=== PATIENT | male | born 1940 | race Caucasian/White ===

== ENCOUNTER 2016-11-20 06:10 | Inpatient (IN) | payer MEDICARE, BC ==
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
[~2016-11-20 06:10] MED LIST: Buffered Lidocaine 0.9% SYRIN* 5 ML/SYR SYRINGE INTRADERM ONE; Buffered Lidocaine 0.9% SYRIN* 5 ML/SYR SYRINGE ONE; Famotidine IV* 10 MG/ML 2 ML (20 mg) IV ONE; Famotidine IV* 10 MG/ML 2 ML (20 mg) ONE; Metoclopramide TAB* 10 MG ONE; Metoclopramide TAB* 10 MG PO ONE; ceFAZolin 2 GM PREMIX(*) 2 GM/50 ML BAG IVPB ONE
[2016-11-20] MEDS ORDERED: KETAMINE HCL* 50 MG/ML 10 ML VIAL ONE (07:03)
[2016-11-20] MEDS ORDERED: Dexamethasone IV* 4 MG/ML 1 ML (4 MG) ONE (07:03)
[2016-11-20] MEDS ORDERED: Ondansetron INJ* 2 MG/ML VIAL ONE ×2 (07:03→11:17)
[2016-11-20] MEDS ORDERED: Ketorolac INJ* 30 MG/ML 1 ML VIAL ONE (07:03)
[2016-11-20] MEDS ORDERED: Propofol* 10 MG/ML 20 ML BTL IV PUSH ONE (07:03)
[2016-11-20] MEDS ORDERED: fentaNYL* 50 MCG/ML 2 ML VIAL (100 MCG VIAL) ONE (07:03)
[2016-11-20] MEDS ORDERED: Lidocaine 2% PF * 5 ML VIAL ONE (07:03)
[2016-11-20] MEDS ORDERED: Midazolam* 1 MG/ML 5 ML VIAL (5 MG) ONE (07:03)
[2016-11-20] MEDS ORDERED: Propofol* 500 MG/50 ML BTL ONE (07:28)
[2016-11-20] MEDS ORDERED: Bupivacaine 0.5% SDV PF* 30 ML VIAL ONE (07:28)
[2016-11-20] MEDS ORDERED: Morphine PF AMP (0.5MG/ML)* 5 MG/10 ML AMP ONE (07:28)
[2016-11-20] MEDS ORDERED: Phenylephrine INJ* 10 MG/ML 1 ML VIAL (10 MG) ONE (08:57)
[2016-11-20] MEDS ORDERED: diPHENhydraMINE IV* 50 MG/ML 1 ml VIAL (BENADRYL) IV PRN ×2 (09:21→09:25)
[2016-11-20] MEDS ORDERED: fentaNYL* 50 MCG/ML 2 ML VIAL (100 MCG VIAL) IV PRN (09:21)
[2016-11-20] MEDS ORDERED: Phenylephrine INJ* 50 MG in NS 0.9% 250 ML* 245 ML IV PRN (09:21)
[2016-11-20] MEDS ORDERED: Ondansetron INJ* 2 MG/ML VIAL IV PRN ×2 (09:21→09:25)
[2016-11-20] MEDS ORDERED: oxyCODONE/Acetamin 5/325 MG* TAB PO PRN ×2 (09:25)
[2016-11-20] MEDS ORDERED: EPHEDrine (Pressors)* 50 MG/ML VIAL IV PUSH PRN (09:25)
[2016-11-20] MEDS ORDERED: Lactated Ringers 500 ml BAG* 500 ML IV PRN (09:25)
[2016-11-20] MEDS ORDERED: Naloxone* 0.4 MG/ML 1 ML VIAL IV PRN (09:31)
[2016-11-20] MEDS ORDERED: Ropivacaine* 300 MG in NS 0.9% 250 ML* 240 ML EPIDURAL SCH (10:00)
[2016-11-20] MEDS ORDERED: Polyethylene Glycol 3350* 17 GM PACKET PO PRN (10:40)
[2016-11-20] MEDS ORDERED: Magnesium Hydroxide LIQ* 30 ML UDC PO PRN (10:40)
[2016-11-20] MEDS ORDERED: Bisacodyl SUPP* 10 MG SUPP PR PRN (10:40)
[2016-11-20] MEDS ORDERED: Acetaminophen TAB* 325 MG PO PRN (10:40)
[2016-11-20] MEDS ORDERED: Benzonatate CAP* 100 MG PO PRN (10:43)
--- NOTE | 2016-11-20 11:44 | RAD ---
INDICATION: Status post total right knee replacement surgery. COMPARISON: Comparison is made with a prior x-ray study of the right knee from October 12, 2016. TECHNIQUE: 2 views of the right knee were obtained. FINDINGS: The patient is status post total right knee replacement surgery. The bones and prostheses are in normal alignment. There is a surgical drain present anterior to the distal femur. IMPRESSION: STATUS POST TOTAL RIGHT KNEE REPLACEMENT SURGERY.
[2016-11-20] MEDS ORDERED: DiMENhydriNATE IV* 50 MG/ML VIAL ONE (14:09)
[2016-11-20] MEDS ORDERED: Scopolamine 1.5 mg* PATCH TRANSDERM ONE (15:00)
[2016-11-20] MEDS ORDERED: Dextrose 50% Syringe 50 ML* 25 GM/50 ML SYRINGE IV PUSH PRN (16:11)
[2016-11-20] MEDS ORDERED: Warfarin TAB(*) 6 MG PO ONE (17:00)
[2016-11-20] MEDS: ceFAZolin VIAL(*) 1 GM in NS 0.9% 50 ML* 50 ML IVPB SCH (17:15)
[2016-11-20] MEDS: Insulin LISPRO* 1 UNITS UNIT SUBCUT SCH ×2 (18:10→21:00)
[2016-11-20] MEDS: Docusate CAP* 100 MG PO SCH (20:58)
[2016-11-20] MEDS: Metoprolol Succinate XL TAB* 50 MG PO SCH (20:58)
--- NOTE | 2016-11-20 22:53 | CONS ---
CC: Dr. Jeana Zacarias ([facility]), in [place], [place] * MEDICAL CONSULTATION REPORT: DATE OF CONSULT/DICTATION: 11/20/16 PRIMARY CARE PROVIDER: Dr. Tucker in [place]. REQUESTING PROVIDER AND SURGEON: Dr. Greene. CONSULTING PROVIDER: JUVENTINO Jeffery SUPERVISING PHYSICIAN: Dr. Beth Rodriguez. REASON FOR CONSULT: Status post right total knee replacement and request for medical co-management. HISTORY OF PRESENT ILLNESS: This is a 75-year-old gentleman with non-insulin dependent diabetes, hypertension, hyperlipidemia, obstructive sleep apnea, spinal stenosis, BPH, and GERD, who presented for an elective right total knee replacement with Dr. Greene, which took place earlier today. Review of his medical chart reveals that the patient was evaluated by his primary care provider and store hand preoperatively. The patient had a nuclear stress test in June 2016 after an episode of chest pain which was read as a low risk study without evidence for ischemia or old infarct. At the time of recent evaluation, he had an echocardiogram performed which shows a normal left ventricular ejection fraction, mild valvular insufficiency, but no other concerning abnormalities. The patient has no known history of coronary artery disease. Primary care provider states that his chronic medical conditions are appropriately controlled preoperatively. The patient denies any recent illness. No periods of chest pain, shortness of breath, palpitations, abdominal pain, nausea, or vomiting. The patient was evaluated postoperatively and he is fatigued. He had some mild nausea earlier, but states that this is resolved and he does not have any pain in his surgical site and he still has limited feeling after spinal anesthesia. He denies chest pain or shortness of breath at this time. PAST MEDICAL HISTORY: 1. Hypertension. 2. Hyperlipidemia. 3. Obstructive sleep apnea. 4. Non-insulin dependent diabetes/the patient is treated only with Onglyza. 5. Spinal stenosis. 6. BPH. 7. GERD. PAST SURGICAL HISTORY: 1. Hernia repair. 2. Cataract extraction. HOME MEDICATIONS: 1. Aspirin 81 mg p.o. daily. 2. Benzonatate 200 mg p.o. q.i.d. as needed for cough. 3. Fioricet 1 capsule p.o. daily as needed for headache. 4. Trilipix 135 mg p.o. daily. 5. Voltaren gel 1% gel apply topically as needed. 6. Nexium 40 mg p.o. daily. 7. Mobic 15 mg p.o. daily. 8. Metoprolol succinate 50 mg p.o. twice daily. 9. Multivitamin 1 tablet p.o. daily. 10. Pataday eye drops 0.2% solution in both eyes daily. 11. Aurora-3 fatty acids 2 capsules p.o. twice daily. 12. Crestor 20 mg p.o. daily. 13. Onglyza 5 mg p.o. daily. 14. Valsartan/hydrochlorothiazide 160/12.5 take 1 tablet p.o. daily. 15. Vitamin D 50,000 units p.o. daily. SOCIAL HISTORY: The patient lives at home with his . Rare alcohol consumption. He has a 6-pack year smoking history and quit nearly 40 years ago. REVIEW OF SYSTEMS: As noted above in the HPI and otherwise reported negative. PHYSICAL EXAM: Most recent vitals: Temperature 97.1 degrees Fahrenheit, pulse 91 beats per minute, respiratory rate 14 per minute, oxygen saturation 96% on 4 L, and blood pressure 134/64 mmHg. General: This is a very pleasant elderly gentleman who is lying comfortably in the hospital bed. He was asleep upon entering the room, but easily awakens. HEENT: Head is normocephalic, atraumatic. Mucous membranes are pink and moist. Cardiovascular: Heart has a regular rate and rhythm without murmurs, rubs, or gallops. Respiratory: Lungs are clear to auscultation without wheezes, crackles, or rhonchi. Abdomen: Soft and nontender to palpation. Extremities: Surgical dressing is in place with Cryo/cuff over right knee. No significant lower extremity edema noted. Skin: Limited exam shows no concerning rashes or lesions. Psych: The patient is alert and appropriately oriented. DIAGNOSTIC STUDIES/LAB DATA: Reviewed preoperative labs from 10/24/16 which included a CBC which was within normal limits. His preop hemoglobin was specifically 13.9. Comprehensive metabolic panel was also within normal limits with a preop creatinine of 0.9 with an estimated GFR of greater than 60. IMAGIN. Preop EKG shows a sinus rhythm without ischemic changes. 2. Preop chest x-ray from 11/14/16 shows no acute process. ASSESSMENT AND PLAN: This is a 75-year-old gentleman with hypertension, hyperlipidemia, obstructive sleep apnea, spinal stenosis, diabetes, benign prostatic hyperplasia, and gastroesophageal reflux disease, who presented for elective right total knee replacement with Dr. Greene earlier today. Medical co - management has been requested from hospitalist group. 1. Status post right total knee replacement - postoperative management per orthopedic surgery team including DVT prophylaxis, pain management, and discharge planning. 2. Hypertension - the patient is normotensive postoperatively. We plan to hold his OSWALDO inhibitor and hydrochlorothiazide postoperatively and likely resume tomorrow or the following day. 3. Hyperlipidemia - continue statin. 4. Obstructive sleep apnea - the patient brought his own CPAP machine which will be ordered for use during his hospital stay. 5. Non-insulin dependent diabetes - we will hold his oral hypoglycemic agents at this time and cover with sliding scale Humalog as needed. 6. Benign prostatic hyperplasia. 7. Gastroesophageal reflux disease. 8. Spinal stenosis with chronic back pain. 9. Code status - the patient is full code. 10. DVT prophylaxis per Orthopedic Surgery. The patient has been ordered Coumadin to start today, which will be bridged with Lovenox. 11. Healthcare proxy is patient's . DISPOSITION: Hospitalist group will continue to follow along postoperatively. JUVENTINO JEFFERY [id number]/[facility] #: [id number] SILVER
[2016-11-21] MEDS: oxyCODONE TAB* 5 MG TAB PO PRN ×5 (05:38→22:47)
[2016-11-21] MEDS ORDERED: Ondansetron INJ* 2 MG/ML VIAL IV PRN (06:00)
[2016-11-21] MEDS ORDERED: HYDROmorphone* 1 MG/ML 1 ML SYR IV SLOW PU PRN (06:00)
[2016-11-21] MEDS ORDERED: diPHENhydraMINE IV* 50 MG/ML 1 ml VIAL (BENADRYL) IV PRN (06:00)
[2016-11-21] MEDS ORDERED: oxyCODONE/Acetamin 5/325 MG* TAB PO PRN (06:00)
[2016-11-21 06:03] LABS: Hematocrit 31 % (42-52); Hemoglobin 10.4 g/dl (14.0-18.0)
[2016-11-21 06:30] LABS: BUN/Creatinine Ratio 31.3 (8-20); Calcium 8.8 mg/dL (8.6-10.3); EGFR African American 116.8 (>60); EGFR Non-African American 90.8 (>60); Potassium 4.1 mmol/L (3.5-5.0)
[2016-11-21] MEDS: CHOLINE FENOFIBRATE PO SCH (07:52)
[2016-11-21] MEDS: ceFAZolin VIAL(*) 1 GM in NS 0.9% 50 ML* 50 ML IVPB SCH ×3 (07:54)
[2016-11-21] MEDS ORDERED: SAXAGLIPTIN HCL 5 MG PO SCH (09:00)
[2016-11-21] MEDS ORDERED: Valsartan/HCTZ 160/12.5(NF) TAB PO SCH (09:00)
[2016-11-21] MEDS ORDERED: Valsartan TAB* 160 MG PO SCH (09:00)
[2016-11-21] MEDS ORDERED: Hydrochlorothiazide TAB* 25 MG PO SCH (09:00)
[2016-11-21] MEDS: Insulin LISPRO* 1 UNITS UNIT SUBCUT SCH ×4 (09:33→22:02)
[2016-11-21] MEDS: Metoprolol Succinate XL TAB* 50 MG PO SCH ×2 (09:34→22:02)
[2016-11-21] MEDS: Enoxaparin(*) 40 MG/0.4 ML SYR SUBCUT SCH (09:34)
[2016-11-21] MEDS: Atorvastatin* 40 MG TAB PO SCH (09:34)
[2016-11-21] MEDS: Docusate CAP* 100 MG PO SCH ×2 (09:34→22:01)
--- NOTE | 2016-11-21 09:45 | OP ---
DATE OF OPERATION: 11/20/16 - ROOM #346 DATE OF : 44 SURGEON: Mai Greene MD CRUST SORTER: JUVENTINO Marlow. Ms. Wong did help throughout the procedure with preparation of the leg, wound retraction, manipulation of the knee, and wound closure. ANESTHESIOLOGIST: Dr. Chris. ANESTHESIA: Spinal. PRE-OP DIAGNOSIS: Severe end-stage osteoarthritis of the right knee joint. POST-OP DIAGNOSIS: Severe end-stage osteoarthritis of the right knee joint. OPERATIVE PROCEDURE: Right total knee arthroplasty. TOURNIQUET TIME: 49 minutes. COMPLICATIONS: None. ESTIMATED BLOOD LOSS: 200 cc. SPECIMENS: Bone and cartilage from the right knee joint, sent to pathology. HARDWARE USED: This is a [employer] cemented total knee arthroplasty hardware. For the femur, a size 6 right posterior stabilized femoral component. For the tibia, a size 6 right tibial baseplate. For the insert, a size 5/6, 9-mm posterior stabilized articular insert. For the patella, a 35-mm , 3-peg all poly patella. Two packages of bone cement were used. BRIEF HISTORY/INDICATIONS: Mr. Olivares is a 75-year-old gentleman with years of increasingly severe right knee pain. He failed conservative treatment with antiinflammatories, pain medication, intraarticular injections, and physical therapy. Radiographs confirmed [id number] end-stage arthritis of the right knee joint. Due to pain and decreased quality of life, the patient elected to have right total knee arthroplasty. Informed consent was obtained from the patient. He understood the risk of surgery included but was not limited to bleeding, infection, damage to nearby structures, intra-op fracture, nerve palsy , hardware failure or loosening, knee stiffness, loss of motion, stroke, heart attack, blood clot, and . The patient elected to proceed. INTRAOPERATIVE FINDINGS: Intraoperatively, the patient was found to have 10- degree flexion contracture with 120 degrees of flexion. Postop range of motion was achieved with full extension to 130 degrees of flexion. The patient had severe end- stage arthritis with significant cartilage loss in all 3 compartments. DESCRIPTION OF PROCEDURE: Mr. Olivares was identified in the preanesthesia unit. His right lower extremity was marked as the correct operative side. Informed consent was signed and placed in the chart. The patient was taken to the operating room and placed under spinal anesthesia. Warren catheter was placed. Thigh-high tourniquet was placed on the right thigh. The right lower extremity was prepped and draped in the usual sterile fashion. Preop time-out was made to correctly identify the patient's side and site. Appropriate perioperative antibiotics were given within 1 hour of incision. Tourniquet was inflated and total tourniquet time for this procedure was 49 minutes. Incision was made in the midline, which was 14 cm in length. This was carried down to the extensor mechanism. A new 10 blade was used to make a standard medial parapatellar arthrotomy and the patella was subluxed laterally. Electrocautery was used to subperiosteally elevate soft tissue off the superomedial tibia to the midsagittal plane. Osteophytes were carefully removed from around the proximal tibia. The knee was carefully flexed up. The anterior horn of the lateral meniscus was sharply removed. ACL was not present. A drill was used to enter the distal femur. Intramedullary distal femoral cutting guide was then pinned on the distal femur. Oscillating saw was used to make the distal femoral cut. External rotation guide was pinned on the distal femur. Distal femur was sized to a size 6. Size 6 multi- cutting jig was pinned on the distal femur. Oscillating saw was used to make the appropriate 4 chamfer cuts. Any bony fragments were carefully removed. The PCL was completely released. The tibia was subluxed anteriorly. Extramedullary tibial cutting guide was pinned on the proximal tibia. Oscillating saw was used to make the proximal tibial cut perpendicular to the mechanical axis of the tibia. The bone was carefully removed. The knee was brought out into full extension. There was good medial and lateral ligamentous balancing. There was good flexion and extension gap balancing. The knee was flexed up. Lamina director of surgery was placed both medially and laterally. Any remaining meniscus was carefully removed using electrocautery. Curved osteotome was used to remove any posterior osteophytes. A tibial tray and drop veronika were placed. Once again, satisfactory proximal tibial cut was noted. A size 6 femoral trial right side was chosen and impacted on to the distal femur. This had excellent fit. The box for the posterior stabilized implant was prepared using a reamer and box cut osteotome. Trial size 6 tibial tray and a 9 mm insert trial were placed. The knee was taken through a range of motion and had full extension to 130 degrees of flexion with good patellofemoral tracking. Patella was everted. A 9 mm of patellar bone and cartilage was carefully removed with an oscillating saw. Patella was sized to a size 35. Three peg holes were drilled through the size 35 guide. 35 patella trial was chosen and placed and the knee was taken through a range of motion and had good patellofemoral tracking. All trials were carefully removed. The tibia was subluxed anteriorly and sized to a size 6. Proximal tibia was prepared using a size 6 keel punch. All bony cut surfaces were copiously irrigated with sterile saline and dried. The final implants were cemented into place starting with the tibia, followed by the femur, and last the patella. A 9-mm insert trial was placed while the knee was brought out into full extension. Tourniquet was turned down at 49 minutes. The knee was copiously irrigated with sterile saline. Once the cement had fully cured, the insert trial was removed. Any excess cement was carefully removed. Electrocautery was used to obtain meticulous hemostasis. Final insert chosen was a 9-mm posterior stabilized articular insert size 5/6. This was locked into position on the tibial tray. Stability of the insert was checked and rechecked and noted to be stable. The knee was copiously irrigated with sterile saline. The extensor mechanism was reapproximated using interrupted #1 Vicryl over a medium Hemovac drain. The rest of the incision was closed in a layered fashion using 0 and 2-0 Vicryls. The skin was closed using running 3-0 nylon suture. The incision was covered with Xeroform, 4x4's, and Webril. Wilberto wrap and cold pack were placed over this. The patient's anesthesia was reversed without difficulty. The patient was taken to the PACU in stable condition. Intended weightbearing will be weightbearing as tolerated. Intended DVT prophylaxis will be Coumadin with a Lovenox bridge. [id number]/[facility] #: [id number] SILVER
--- NOTE | 2016-11-21 10:52 | PN ---
Progress Note - Progress Note SOAP: Subjective: []Patient seen OOB in chair with mild to moderate right knee pain. Denies SOB, CP or dizziness. Objective: [] Vital Signs Temp 97.5 F 11/21/16 07:36 Pulse 74 11/21/16 07:36 Resp 18 11/21/16 09:34 BP 132/70 11/21/16 07:36 Pulse Ox 100 11/21/16 08:00 Intake & Output 11/20/16 11/21/16 11/21/16 18:59 06:59 18:59 Intake Total 3260 2015 420 Output Total 400 700 600 Balance 2860 1315 -180 Intake: IV Fluids 2900 1035 ABX - CEFAZOLIN 55 D5W LR 980 LR 2900 Oral 360 980 420 Output: Warren 250 700 600 Straight Cath 150 Other: # Bowel Movements 0 Laboratory Results - last 24 hr 11/20/16 11/20/16 11/21/16 17:15 20:49 05:38 Hgb 10.4 L Hct 31 L INR (Anticoag Therapy) Sodium Potassium Chloride Carbon Dioxide Anion Gap BUN Creatinine Est GFR ( Amer) Est GFR (Non-Af Amer) BUN/Creatinine Ratio Glucose POC Glucose (mg/dL) 180 H 182 H Calcium 11/21/16 11/21/16 11/21/16 05:38 05:38 07:43 Hgb Hct INR (Anticoag Therapy) 1.02 Sodium 133 Potassium 4.1 Chloride 102 Carbon Dioxide 25 Anion Gap 6 BUN 26 H Creatinine 0.83 Est GFR ( Amer) 116.8 Est GFR (Non-Af Amer) 90.8 BUN/Creatinine Ratio 31.3 H Glucose 131 H POC Glucose (mg/dL) 150 H Calcium 8.8 Right knee hemovac was discontinued by Dr. Greene this am, no complications Dressing remains dry calf non tender +DF/PF right ankle sensation intact Assessment: []s/p Right total knee arthroplasty POD #1 Plan: []PT/OT WBAT RLE Coumadin with Lovenox bridge- 8 mg today Home with VNS Saturday
[2016-11-21] MEDS: Ketorolac INJ* 30 MG/ML 1 ML VIAL IV PUSH PRN (11:42)
--- NOTE | 2016-11-21 16:29 | PN ---
Subjective Date of Service: 11/21/16 Interval History: Patient reports moderate pain. No SOB or CP. No palpitations. No abd pain, n/ v. Appetite is good Objective Active Medications: Acetaminophen (Tylenol Tab*) 650 mg PO Q4H PRN PRN Reason: PAIN OR TEMPERATURE Atorvastatin Calcium (Lipitor*) 40 mg PO DAILY [facility] Last Admin: 11/21/16 09:34 Dose: 40 mg Benzonatate (Tessalon Cap*) 200 mg PO QID PRN PRN Reason: COUGH Bisacodyl (Dulcolax Supp*) 10 mg MI DAILY PRN PRN Reason: constipation Dextrose (D50w Syringe 50 Ml*) 12.5 gm IV PUSH .FOR FS < 60 - SS PRN PRN Reason: FS < 60 Diphenhydramine HCl (Benadryl Iv*) 12.5 mg IV Q6H PRN PRN Reason: PRURITIS Docusate Sodium (Colace Cap*) 100 mg PO BID [facility] Last Admin: 11/21/16 09:34 Dose: 100 mg Enoxaparin Sodium (Lovenox(*)) 40 mg SUBCUT Q24H [facility] Last Admin: 11/21/16 09:34 Dose: 40 mg Fenofibrate (Trilipix(Nf)) 135 mg PO DAILY [facility] Last Admin: 11/21/16 07:52 Dose: Not Given Hydromorphone HCl (Dilaudid Iv*) 1 mg IV SLOW PU Q4H PRN PRN Reason: PAIN Lactated Ringer's (Lactated Ringers 1000 Ml Bag*) 1,000 mls @ 100 mls/hr IV PER RATE [facility] Last Admin: 11/21/16 00:03 Dose: 100 mls/hr Insulin Human Lispro (Humalog*) 0 units SUBCUT ACHS [facility] PRN Reason: Protocol Last Admin: 11/21/16 13:20 Dose: 2 units Ketorolac Tromethamine (Toradol Inj*) 30 mg IV PUSH Q6H PRN PRN Reason: PAIN Last Admin: 11/21/16 11:42 Dose: 30 mg Lactulose (Lactulose*) 30 ml PO Q6H PRN PRN Reason: constipation Magnesium Hydroxide (Milk Of Magnesia Liq*) 30 ml PO Q6H PRN PRN Reason: constipation Metoprolol Succinate (Toprol Xl Tab*) 50 mg PO BID [facility] Last Admin: 11/21/16 09:34 Dose: 50 mg Ondansetron HCl (Zofran Inj*) 4 mg IV Q6H PRN PRN Reason: nausea Last Admin: 11/21/16 07:49 Dose: 4 mg Oxycodone HCl (Roxycodone Tab*) 10 mg PO Q4H PRN PRN Reason: SEVERE PAIN Last Admin: 11/21/16 12:32 Dose: 10 mg Oxycodone/Acetaminophen (Percocet 5/325 Tab*) 1 tab PO Q3H PRN PRN Reason: PAIN - MODERATE Oxycodone/Acetaminophen (Percocet 5/325 Tab*) 2 tab PO Q3H PRN PRN Reason: PAIN - MODERATE Pharmacy Profile Note (Coumadin Daily Reminder*) 0 note FOLLOW UP 1700 [facility] Last Admin: 11/20/16 15:03 Dose: 1 note Pharmacy Profile Note (Scopolomine Patch Remove*) 1 note PATCH OFF 1500 ONE Stop: 11/23/16 15:01 Polyethylene Glycol/Electrolytes (Miralax*) 17 gm PO DAILY PRN PRN Reason: Constipation Warfarin Sodium (Coumadin Tab(*)) 8 mg PO ONCE@1700 ONE PRN Reason: Protocol Stop: 11/21/16 17:01 Vital Signs: Temp Pulse Resp BP Pulse Ox 98.1 F 103 19 144/60 93 11/21/16 11:36 11/21/16 15:58 11/21/16 15:58 11/21/16 15:58 11/21/16 15:58 Oxygen Devices in Use Now: None Appearance: Well appearing elderly gentleman in NAD Respiratory: Symmetrical Chest Expansion and Respiratory Effort, Clear to Auscultation Cardiovascular: NL Sounds; No Murmurs; No JVD, RRR Abdominal: NL Sounds; No Tenderness; No Distention Extremities: No Edema Skin: No Rash or Ulcers Neurological: Alert and Oriented x 3 Result Diagrams: 11/21/16 05:38 11/21/16 05:38 Assess/Plan/Problems-Billing Assessment: This is a 75 yo gentleman with NIDDM, HTN, DALE, GERD, BPH, HLD and spinal stenosis who presented for elective R TKA with Dr Greene. Hospitalist group has been asked to co-manage. - Patient Problems (1) Status post total knee replacement Comment: POD #1 Management per surgery (2) Diabetes Comment: NIDDM Well controlled Cont SS Humalog (3) HTN (hypertension) Comment: Normotensive Restart Diovan tomorrow Cont metoprolol (4) HLD (hyperlipidemia) (5) DALE (obstructive sleep apnea) Comment: Compliant with CPAP (6) BPH (benign prostatic hyperplasia) (7) Spinal stenosis (8) Full code status (9) DVT prophylaxis Comment: per ortho Lovenox bridging to Coumadin Status and Disposition: Inpatient. Dispo per ortho
[2016-11-21] MEDS ORDERED: Warfarin TAB(*) 4 MG PO ONE (17:00)
[2016-11-21] MEDS: oxyCODONE/Acetamin 5/325 MG* TAB PO PRN (19:34)
[2016-11-22] MEDS: Ketorolac INJ* 30 MG/ML 1 ML VIAL IV PUSH PRN (03:40)
[2016-11-22 06:54] LABS: Hematocrit 28 % (42-52); Hemoglobin 9.6 g/dl (14.0-18.0)
--- NOTE | 2016-11-22 07:40 | PN ---
Progress Note - Progress Note SOAP: Subjective: Pt. reports doing well with PT, pain is controlled. Objective: RLE - dressing changed, mod edema at knee. inc c/d/i. distally nvi. Vital Signs: Temp Pulse Resp BP Pulse Ox 97.5 F 90 16 155/81 98 11/22/16 03:32 11/22/16 03:32 11/22/16 03:32 11/22/16 03:32 11/22/16 03:32 Vital Signs: Temp Pulse Resp BP Pulse Ox 97.5 F 90 16 155/81 98 11/22/16 03:32 11/22/16 03:32 11/22/16 03:32 11/22/16 03:32 11/22/16 03:32 Laboratory Results - last 24 hr 11/21/16 11/21/16 11/21/16 07:43 11:40 17:59 Hgb Hct INR (Anticoag Therapy) POC Glucose (mg/dL) 150 H 154 H 143 H 11/21/16 11/22/16 11/22/16 21:56 06:21 06:21 Hgb 9.6 L Hct 28 L INR (Anticoag Therapy) 1.11 POC Glucose (mg/dL) 157 H Assessment: 75 yo M pod 2 s/p RTKA Plan: wbat rle pt/ot 8 mg coumadin tonight, cont. lovenox plan d/c to home with snf today or tomorrow
[2016-11-22] MEDS: oxyCODONE/Acetamin 5/325 MG* TAB PO PRN ×2 (08:20→13:44)
[2016-11-22] MEDS: Atorvastatin* 40 MG TAB PO SCH (08:20)
[2016-11-22] MEDS: Metoprolol Succinate XL TAB* 50 MG PO SCH (08:21)
[2016-11-22] MEDS: Insulin LISPRO* 1 UNITS UNIT SUBCUT SCH ×2 (08:21→11:37)
[2016-11-22] MEDS: Docusate CAP* 100 MG PO SCH (08:21)
[2016-11-22] MEDS ORDERED: Tamsulosin CAP* 0.4 MG PO SCH (09:00)
[2016-11-22] MEDS ORDERED: Valsartan/HCTZ 160/12.5(NF) TAB PO SCH (09:00)
[2016-11-22] MEDS ORDERED: Hydrochlorothiazide TAB* 25 MG PO SCH (09:00)
[2016-11-22] MEDS ORDERED: Valsartan TAB* 160 MG PO SCH (09:00)
[2016-11-22] MEDS: CHOLINE FENOFIBRATE PO SCH (09:39)
[2016-11-22] MEDS: Enoxaparin(*) 40 MG/0.4 ML SYR SUBCUT SCH (09:55)
[2016-11-22 12:56] VITALS: BP 134/73
--- NOTE | 2016-11-22 14:15 | PN ---
Subjective Date of Service: 11/22/16 Interval History: Patient offers no acute complaints and is in the process of being discharged home. Objective Active Medications: Acetaminophen (Tylenol Tab*) 650 mg PO Q4H PRN PRN Reason: PAIN OR TEMPERATURE Atorvastatin Calcium (Lipitor*) 40 mg PO DAILY [facility] Last Admin: 11/22/16 08:20 Dose: 40 mg Benzonatate (Tessalon Cap*) 200 mg PO QID PRN PRN Reason: COUGH Bisacodyl (Dulcolax Supp*) 10 mg [place] DAILY PRN PRN Reason: constipation Dextrose (D50w Syringe 50 Ml*) 12.5 gm IV PUSH .FOR FS < 60 - SS PRN PRN Reason: FS < 60 Diphenhydramine HCl (Benadryl Iv*) 12.5 mg IV Q6H PRN PRN Reason: PRURITIS Docusate Sodium (Colace Cap*) 100 mg PO BID [facility] Last Admin: 11/22/16 08:21 Dose: 100 mg Enoxaparin Sodium (Lovenox(*)) 40 mg SUBCUT Q24H [facility] Last Admin: 11/22/16 09:55 Dose: 40 mg Fenofibrate (Trilipix(Nf)) 135 mg PO DAILY [facility] Last Admin: 11/22/16 09:39 Dose: Not Given Hydrochlorothiazide (Hydrodiuril Tab*) 12.5 mg PO DAILY [facility] Last Admin: 11/22/16 08:22 Dose: 12.5 mg Hydromorphone HCl (Dilaudid Iv*) 1 mg IV SLOW PU Q4H PRN PRN Reason: PAIN Lactated Ringer's (Lactated Ringers 1000 Ml Bag*) 1,000 mls @ 100 mls/hr IV PER RATE [facility] Last Admin: 11/21/16 00:03 Dose: 100 mls/hr Insulin Human Lispro (Humalog*) 0 units SUBCUT ACHS [facility] PRN Reason: Protocol Last Admin: 11/22/16 11:37 Dose: Not Given Ketorolac Tromethamine (Toradol Inj*) 30 mg IV PUSH Q6H PRN PRN Reason: PAIN Last Admin: 11/22/16 03:40 Dose: 30 mg Lactulose (Lactulose*) 30 ml PO Q6H PRN PRN Reason: constipation Magnesium Hydroxide (Milk Of Magnesia Liq*) 30 ml PO Q6H PRN PRN Reason: constipation Last Admin: 11/22/16 08:23 Dose: 30 ml Metoprolol Succinate (Toprol Xl Tab*) 50 mg PO BID [facility] Last Admin: 11/22/16 08:21 Dose: 50 mg Ondansetron HCl (Zofran Inj*) 4 mg IV Q6H PRN PRN Reason: nausea Last Admin: 11/21/16 07:49 Dose: 4 mg Oxycodone HCl (Roxycodone Tab*) 10 mg PO Q4H PRN PRN Reason: SEVERE PAIN Last Admin: 11/21/16 22:47 Dose: 10 mg Oxycodone/Acetaminophen (Percocet 5/325 Tab*) 1 tab PO Q3H PRN PRN Reason: PAIN - MODERATE Oxycodone/Acetaminophen (Percocet 5/325 Tab*) 2 tab PO Q3H PRN PRN Reason: PAIN - MODERATE Last Admin: 11/22/16 13:44 Dose: 2 tab Pharmacy Profile Note (Coumadin Daily Reminder*) 0 note FOLLOW UP 1700 [facility] Last Admin: 11/21/16 16:37 Dose: 1 note Pharmacy Profile Note (Scopolomine Patch Remove*) 1 note PATCH OFF 1500 ONE Stop: 11/23/16 15:01 Polyethylene Glycol/Electrolytes (Miralax*) 17 gm PO DAILY PRN PRN Reason: Constipation Tamsulosin HCl (Flomax Cap*) 0.4 mg PO DAILY [facility] Last Admin: 11/22/16 08:20 Dose: 0.4 mg Valsartan (Diovan Tab*) 160 mg PO DAILY [facility] Last Admin: 11/22/16 08:21 Dose: 160 mg Warfarin Sodium (Coumadin Tab(*)) 8 mg PO ONCE@1700 ONE PRN Reason: Protocol Stop: 11/22/16 17:01 Vital Signs: Temp Pulse Resp BP Pulse Ox 97.7 F 94 16 134/73 94 11/22/16 11:38 11/22/16 11:38 11/22/16 13:44 11/22/16 11:38 11/22/16 11:38 Oxygen Devices in Use Now: None Appearance: Well appearing, accompanied by family. Full exam deferred Result Diagrams: 11/22/16 06:21 11/21/16 05:38 Assess/Plan/Problems-Billing Assessment: This is a 75 yo gentleman with NIDDM, HTN, DALE, GERD, BPH, HLD and spinal stenosis who presented for elective R TKA with Dr Greene. Hospitalist group has been asked to co-manage. - Patient Problems (1) Status post total knee replacement Comment: POD #2 Management per surgery, plan for dc home today (2) Diabetes Comment: NIDDM Well controlled Can resume Onglyza at discharge (3) HTN (hypertension) Comment: Normotensive Cont home antihypertensives (4) HLD (hyperlipidemia) (5) DALE (obstructive sleep apnea) Comment: Compliant with CPAP (6) BPH (benign prostatic hyperplasia) (7) Spinal stenosis (8) Full code status (9) DVT prophylaxis Comment: per ortho Lovenox bridging to Coumadin Status and Disposition: Discharge per ortho today. Recommend resuming all home medications. No acute medical concerns during hospital stay
[2016-11-22] MEDS ORDERED: Warfarin TAB(*) 4 MG PO ONE (17:00)
--- NOTE | 2016-11-23 12:36 | DS ---
DISCHARGE SUMMARY: DATE OF ADMISSION: 11/20/16 DATE OF DISCHARGE: 11/22/16 ADMISSION DIAGNOSIS: Severe end-stage degenerative arthritis, right knee joint. DISCHARGE DIAGNOSIS: Severe end-stage degenerative arthritis, right knee joint. SURGERY PERFORMED: Right total knee arthroplasty. HOSPITAL COURSE: The patient is a 75-year-old male with increasingly severe right knee pain. He fa iled conservative management with anti-inflammatories, pain medications, intraarticular cortisone in jections, and physical therapy. His x-rays revealed end-stage [id number] osteoarthritis of the ri ght knee joint. Due to his increased pain, decreased quality of life, he elected to proceed with th e aforementioned procedure and was taken to the operating room under the care of Dr. Mai Greene on the date of 11/20/16. He tolerated the procedure well and left the operating room in stable condit ion. Postoperatively, he progressed very well with physical therapy and occupational therapy goals. He had no postoperative complications. It was felt he was stable medically and orthopedically for discharge to home on the date of 11/22/16. CONDITION ON DISCHARGE: The patient was afebrile. His vital signs were stable. His incision in the right knee was healing well without evidence of infection. His calf was nontender and soft. His n eurovascular status was intact with positive dorsiflexion and plantarflexion of the right ankle. PLAN: Discharged to home with [facility] services. He received 8 mg of Coumadin on the day of his dischar , 11/22/16; and will have 2 mg of Coumadin 11/23/16; 2 mg of Coumadin, 11/24/16; and 2 mg of Coumadin, 11/25/16 with a repeat blood draw on 11/26/16. He will follow up with Dr. Anatoliy bull in roughly 10 to 14 days in the office. If he were to have any increased knee pain, increased swe lling, calf pain, swelling, shortness of breath, chest pain, the office will be contacted prior to h is scheduled appointment. He also has oxycodone and Colace prescriptions to use at home. JUVENTINO BERNARD [id number]/[facility] #: [id number]
[2016-11-23] MEDS ORDERED: Scopolomine PATCH Remove* 1 NOTE MISC PATCH OFF ONE (15:00)
== END 2016-11-22 14:20 | disposition home health service (06) | DRG 470 ==
LOC: AA 06:10 → SSU 10:40
PROVIDERS: ADMIT Orthopaedic Surgery Adult Reconstructive Orthopaedic Surgery; ATTEND Orthopaedic Surgery Adult Reconstructive Orthopaedic Surgery
PROC: 0SRC0J9 Replacement of Right Knee Joint with Synthetic Substitute, Cemented, Open Approach (ICD-10-PCS; principal; 2016-11-20 08:00)
DX: M17.11 Unilateral primary osteoarthritis, right knee (principal); E11.9 Type 2 diabetes mellitus without complications; I08.3 Combined rheumatic disorders of mitral, aortic and tricuspid valves; M06.9 Rheumatoid arthritis, unspecified; I10 Essential (primary) hypertension; E78.5 Hyperlipidemia, unspecified; M48.00 Spinal stenosis, site unspecified; N40.0 Benign prostatic hyperplasia without lower urinary tract symptoms; K21.9 Gastro-esophageal reflux disease without esophagitis; Z98.49 Cataract extraction status, unspecified eye; Z82.49 Family history of ischemic heart disease and other diseases of the circulatory system; Z83.3 Family history of diabetes mellitus; G47.33 Obstructive sleep apnea (adult) (pediatric); Z87.891 Personal history of nicotine dependence; G89.29 Other chronic pain; J45.909 Unspecified asthma, uncomplicated
CPT/HCPCS: 36415; 80048; 85014; 85018; 85610; 94760; A9270-GY; C1776; J0690; J1100; J1240; J1650; J1885; J2250; J2405; J2704; J2795; J3010

== ENCOUNTER 2017-01-31 14:50 | Emergency (ER) | payer MEDICARE, BC ==
[2017-01-31] MEDS ORDERED: Ketorolac INJ* 60 MG/2 ML VIAL IM ONE (17:42)
[2017-01-31] MEDS ORDERED: traMADol TAB* 50 MG PO ONE (17:42)
--- NOTE | 2017-01-31 19:06 | RAD ---
Indication: Right leg edema. Duplex Doppler sonography of the deep venous system of the right lower extremity deep venous system was performed. Bilaterally the common femoral veins appear patent and compressible. Right proximal greater saphenous vein, proximal deep femoral vein, femoral vein, popliteal vein, posterior tibial veins and peroneal veins appear patent and compressible. IMPRESSION: NO EVIDENCE OF DEEP VENOUS THROMBOSIS IS IDENTIFIED.
--- NOTE | 2017-01-31 19:29 | RAD ---
Indication: Redness of the right lower extremity. 2 views of the right femur demonstrates no fracture. No other bone or joint abnormality is noted. IMPRESSION: No fracture of the right femur is noted.
--- NOTE | 2017-01-31 19:29 | RAD ---
Indication: Pain. 4 views of the right knee demonstrates bipolar knee arthroplasty in satisfactory position. Joint spaces all well-preserved. IMPRESSION: Right knee arthroplasty in satisfactory position. No obvious loosening is noted.
[2017-01-31 21:27] VITALS: BP 150/80
--- NOTE | 2017-02-02 21:36 | ED ---
Al Kelly Benjamin, scribed for Pj Becker MD on 01/31/17 at 1843 . Lower Extremity - HPI Summary HPI Summary: 76yo male s/p right knee replacement on 11/20/[address] Greene. Pt states that his surgery went well and pt completed his PT course, and everything seem to be working fine. Today however, pt felt sudden right knee pain immediately after lifting his right leg trying to tie his shoe lace. Pt describes feeling the right artificial knee come apart. Pt cant twist his right knee due to pain. Pt also has pain in his right inner knee and in fact, points the pain in his right inner thigh. Hx of DVT in knee, but pt cannot recall which knee. Pt also reports the right knee becoming swollen and red today. - History of Current Complaint Chief Complaint: EDExtremityLower Stated Complaint: RT LEG PAIN Time Seen by Provider: 01/31/17 17:32 Hx Obtained From: Patient, Family/Assembly Associate - Onset of Pain: Immediate, Post Accident Onset/Duration: Hours Severity Initially: Mild Severity Currently: Mild Pain Intensity: 3 Pain Scale Used: 0-10 Numeric Timing: Constant Location: Is Discrete @ - right knee, right inner thigh Associated Signs And Symptoms: Positive: Swelling, Redness, Knee Pain - right Aggravating Factor(s): Movement, Weight Bearing Alleviating Factor(s): Rest, Elevation, Ice Able to Bear Weight: No - Allergies/Home Medications Allergies/Adverse Reactions: Allergies Allergy/AdvReac Type Severity Reaction Status Date / Time Morphine Allergy body shakes Verified 11/20/16 06:23 PMH/Surg Hx/FS Hx/Imm Hx Endocrine/Hematology History: Reports: Hx Diabetes Cardiovascular History: Reports: Hx Hypertension Denies: Other Cardiovascular Problems/Disorders Respiratory History: Reports: Hx Sleep Apnea, Other Respiratory Problems/ Disorders - SLEEP APNEA GI History: Reports: Hx Hiatal Hernia Denies: Other GI Disorders Musculoskeletal History: Reports: Hx Arthritis - all over Sensory History: Reports: Hx Cataracts - klaus, Hx Contacts or Glasses - glasses Denies: Hx Hearing Aid Opthamlomology History: Reports: Hx Cataracts - klaus, Hx Contacts or Glasses - glasses Neurological History: Reports: Hx Headaches, Hx Migraine - infrequent Denies: Other Neuro Impairments/Disorders Psychiatric History: Denies: Other Psychiatric Issues/Disorders - Surgical History Surgery Procedure, Year, and Place: hernia 2003, [place] Hx Anesthesia Reactions: Yes - difficulty with epidural, had to have oxygen Infectious Disease History: No Infectious Disease History: Denies: History Other Infectious Disease, Traveled Outside the [place] in Last 30 Days - Family History Known Family History: Positive: Other - no FHX of malignant hyperthermia - Social History Alcohol Use: Rare Alcohol Amount: 1-2 per month Substance Use Type: Reports: None Smoking Status (MU): Former Smoker Amount Used/How Often: pack a day for 8 yrs Review of Systems Constitutional: Negative Negative: Fever, Chills Eyes: Negative ENT: Negative Cardiovascular: Negative Negative: Palpitations, Chest Pain Respiratory: Negative Negative: Shortness Of Breath, Cough Gastrointestinal: Negative Negative: Abdominal Pain Genitourinary: Negative Positive: Arthralgia - right knee pain, , Myalgia - right inner thigh pain, Edema - right knee Positive: Other - redness at right knee Neurological: Negative Psychological: Normal All Other Systems Reviewed And Are Negative: Yes Physical Exam Triage Information Reviewed: Yes Vital Signs On Initial Exam: Initial Vitals Temp Pulse Resp BP Pulse Ox 97.8 F 86 16 135/65 96 01/31/17 15:00 01/31/17 15:00 01/31/17 15:00 01/31/17 15:00 01/31/17 15:00 Vital Signs Reviewed: Yes Appearance: Positive: Well-Appearing, No Pain Distress, Well-Nourished Skin: Positive: Warm, Dry, Erythema @ - right knee with swelling and pain Head/Face: Positive: Normal Head/Face Inspection Eyes: Positive: EOMI, MELITA, Conjunctiva Clear ENT: Positive: Normal ENT inspection, Hearing grossly normal Neck: Positive: Supple, Nontender Respiratory/Lung Sounds: Positive: Clear to Auscultation, Breath Sounds Present. Negative: Rales, Rhonchi, Wheezes Cardiovascular: Positive: RRR, Pulses are Symmetrical in both Upper and Lower Extremities, Leg Edema Right - right knee with swelling and pain. Negative: Murmur, Leg Edema Left Abdomen Description: Positive: Nontender, Soft. Negative: Distended, Guarding Bowel Sounds: Positive: Present Musculoskeletal: Positive: Pain @ - Right knee with swelling and pain. Tender to palpation at right mid-thigh and femur. Minimal pain with passive motion of the right knee. No hip tenderness., Edema Right - right knee with swelling and pain Neurological: Positive: Sensory/Motor Intact, Alert, Oriented to Person Place, Time Psychiatric: Positive: Affect/Mood Appropriate - [place] Coma Scale Coma Scale Total: 15 Diagnostics - Vital Signs Vital Signs Temp Pulse Resp BP Pulse Ox 01/31/17 16:23 97.8 F 68 20 125/62 98 01/31/17 15:00 97.8 F 86 16 135/65 96 - Laboratory Lab Statement: Any lab studies that have been ordered have been reviewed, and results considered in the medical decision making process. - Additional Comments Diagnostic Additional Comments: Doppler: NO DVT. Lower Extremity Course/Dx - Course Course Of Treatment: Reviewed pts medication and allergy lists. Blood pressure noted. Pt signed out to Dr. Hayes at 1900. Pending XR reports. Pt will be d' c with a walker. - Diagnoses Provider Diagnoses: Extremity pain Discharge - Discharge Plan Condition: Stable Disposition: HOME Patient Education Materials: Knee Pain (ED) Referrals: Mai Greene MD [Medical Doctor] - 3 Days Additional Instructions: Use your walker to assist with ambulating. The documentation as recorded by the Al morris Benjamin accurately reflects the service I personally performed and the decisions made by , Pj Becker MD.
== END 2017-01-31 21:28 | disposition home or self-care (01) ==
LOC: ED 14:50
DX: M25.561 Pain in right knee (principal); Z96.651 Presence of right artificial knee joint
CPT/HCPCS: 96372; 99282; A9270-GY; J1885